=== PATIENT | male | born 1995 | race Caucasian/White ===

== ENCOUNTER 2019-08-10 19:52 | Emergency (ER) | payer OTHER, BC ==
[~2019-08-10] VITALS: Ht 185.4 cm; Wt 99.7 kg
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
[2019-08-10] MEDS ORDERED: TETANUS AND DIPHTHERIA TOX/PF 0.5 ML VIAL. VAX IM ONE (20:00)
[2019-08-10 20:05] VITALS: BP 150/80
[2019-08-10] MEDS ORDERED: HYDROcodon/IBUPROFEN 7.5/200MG 1 TAB TABLET PO ONE (20:15)
[2019-08-10] MEDS ORDERED: MUPIROCIN 2% TOPICAL OINTMENT 22GM TUBE. TP SCH (21:00)
[2019-08-10] MEDS ORDERED: IV RINGERS SOLUTION,LACTATED 1,000 ML IV SCH (21:01)
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
[2019-08-10 22:20] LABS: BASO % 0 % (0-3); CALCIUM 9.6 mg/dL (8.5-10.1); CREATININE 1.1 mg/dL (0.7-1.3); EOS % 0 % (0-3); GFR 82.2; HEMATOCRIT 44.8 % (39.0-53.0); HEMOGLOBIN 14.7 g/dL (13.0-17.5); LYMPH # 1.1 x10^3/uL (1.0-4.8); LYMPH % 5 % (24-48); MEAN CORPUSCULAR HEMOGLOBIN 27 pg (25-35); MEAN CORPUSCULAR HGB CONC 33 g/dL (31-37); MEAN CORPUSCULAR VOLUME 83 fL (79-100); MONO # 1.3 x10^3/uL (0.0-1.1); MONO % 6 % (0-9); NEUT # 19.3 x10^3uL (1.8-7.7); NEUT % 89 % (31-73); PLATELET COUNT 296 x10^3/uL (140-400); POTASSIUM 3.6 mmol/L (3.5-5.1); RED BLOOD COUNT 5.38 x10^6/uL (4.30-5.70); RED CELL DISTRIBUTION WIDTH 14.1 % (11.5-14.5)
[2019-08-10 22:26] LABS: ALBUMIN 4.6 g/dL (3.4-5.0); DIRECT BILIRUBIN 0.1 mg/dL (0.0-0.2); MAGNESIUM 2.3 mg/dL (1.8-2.4); TOTAL BILIRUBIN 0.6 mg/dL (0.2-1.0); TOTAL PROTEIN 7.7 g/dL (6.4-8.2)
[2019-08-10 22:27] LABS: WHITE BLOOD COUNT 21.7 x10^3/uL (4.0-11.0)
[2019-08-10] MEDS ORDERED: CONTRAST GIVEN MC PRN (22:45)
[2019-08-10] MEDS ORDERED: IOHEXOL 300 MG/ML 75 ML VIAL. IV ONE (23:00)
[2019-08-10 23:19] LABS: AMYLASE 43 U/L (25-115); LIPASE 128 U/L (73-393)
[2019-08-10 23:26] LABS: BACTERIA,URINE FEW /HPF (0-FEW); BILIRUBIN,URINE NEG (NEG); CLARITY,URINE CLEAR; COLOR,URINE YELLOW; GLUCOSE,URINE NEG (NEG); NITRITE,URINE NEG (NEG); RBC,URINE 0 /HPF (0-2); SQUAMOUS EPITHELIAL CELL,UR FEW /LPF; UROBILINOGEN,URINE 0.2 mg/dL (0.2 mg/dL)
--- NOTE | 2019-08-10 23:27 | EKG ---
[address] [address] Test Date: 2019-08-10 Test Time: 21:16:06 Pat Name: HELENA GARZA Department: Room: Gender: M Care Associate: : 1995 Requested By: REJI ATWOOD Order Number: [id number] Reading MD: Roshan Ramirez Measurements Intervals Mcleod Rate: 80 P: 50 DE: 178 QRS: 70 QRSD: 98 T: 37 QT: 358 QTc: 416 Interpretive Statements SINUS RHYTHM NORMAL ECG RI6.02 No previous ECG available for comparison Electronically Signed On 08-11-2019 8:24:08 CDT by Roshan Ramirez
[2019-08-10 23:48] LABS: % BANDS 10 % (0-9); % EOS 1 % (0-5); % LYMPHS 5 % (24-48); % MONOS 2 % (0-10); % SEGS 82 % (35-66)
[2019-08-10 23:49] LABS: PLT ESTIMATE ADEQUATE (ADEQUATE)
[2019-08-11] MEDS ORDERED: MORPHINE SULFATE 10 MG/ML SYRINGE. ONE (00:38)
[2019-08-11] MEDS ORDERED: cefTRIAXone SODIUM 1 GM VIAL ONE (00:48)
[2019-08-11] MEDS ORDERED: IV NORMAL SALINE 50ML 50 ML ONE (00:48)
[2019-08-11] MEDS ORDERED: MORPHINE SULFATE 10 MG/ML SYRINGE. SQ ONE (01:00)
[2019-08-11] MEDS ORDERED: ONDANSETRON PF 4 MG/2 ML VIAL. IVP ONE (01:00)
[2019-08-11] MEDS ORDERED: AZITHROMYCIN 250 MG TABLET. PO ONE (01:00)
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
== END 2019-08-11 03:16 | disposition short-term general hospital (02) ==
LOC: ER 19:52
DX: S82.142A Displaced bicondylar fracture of left tibia, initial encounter for closed fracture (principal); S06.5X9A Traumatic subdural hemorrhage with loss of consciousness of unspecified duration, initial encounter; S30.1XXA Contusion of abdominal wall, initial encounter; S00.03XA Contusion of scalp, initial encounter; S80.212A Abrasion, left knee, initial encounter; S80.211A Abrasion, right knee, initial encounter; S40.211A Abrasion of right shoulder, initial encounter; S40.812A Abrasion of left upper arm, initial encounter; N39.0 Urinary tract infection, site not specified; D72.829 Elevated white blood cell count, unspecified; V98.8XXA Other specified transport accidents, initial encounter; Y93.89 Activity, other specified; Y92.89 Other specified places as the place of occurrence of the external cause; Y99.8 Other external cause status
CPT/HCPCS: 29505; 36415; 70450; 71046; 71260; 72125; 73060; 73090; 73564; 74177; 80048; 80076; 81001; 82150; 82550; 83605; 83690; 83735; 84484; 85007; 85025; 85610; 85730; 87086; 87491; 87591; 90471; 90714; 93005; 96365; 96367; 96372; 99285; J0456; J0696; J2270; J3490; J7120; Q9967